=== PATIENT | female | born 1980 | race American Indian/Alaskan Native ===

== ENCOUNTER 2019-06-14 19:30 | Emergency (ER) | payer SELFPAY ==
--- NOTE | 2019-06-14 20:20 | Event Note ---
ED Screening Note ED Screening Note: n/v/d no fever or chills lmp 06/06 no one in home ill psh csec x 4 cyst ovary appy thyroid cyst tubes in ears t/a pmh obese dm- non adherent htn etoh rx off meds for bp and dm pcp none This initial assessment/diagnostic orders/clinical plan/treatment(s) is/are subject to change based on patients health status, clinical progression and re- assessment by fellow clinical providers in the ED. Further treatment and workup at subsequent clinical providers discretion. Patient/guardian urged not to elope from the ED as their condition may be serious if not clinically assessed and managed. Initial orders include: labs/urine
[2019-06-14 20:55] LABS: Basophils % (Auto) 0.2 % (0.0-1.8); Eosinophils % (Auto) 0.6 % (0.0-4.3); Hematocrit 41.5 % (30.3-42.9); Hemoglobin 14.1 gm/dl (10.1-14.3); Lymphocytes # (Auto) 2.2 K/mm3 (1.2-5.4); Mean Corpuscular HGB Conc 34 % (30-34); Mean Corpuscular Volume 85 fl (79-97); Monocytes # (Auto) 0.7 K/mm3 (0.0-0.8); Monocytes % (Auto) 8.2 % (0.0-7.3); Platelet Count 257 K/mm3 (140-440); Red Blood Count 4.91 M/mm3 (3.65-5.03); Red Cell Distribution Width 18.1 % (13.2-15.2)
[2019-06-14 21:17] LABS: Alanine Aminotransferase 23 units/L (7-56); Albumin 4.2 g/dL (3.9-5); BUN/Creatinine Ratio 5; Blood Urea Nitrogen 4 mg/dL (7-17); Calcium 9.5 mg/dL (8.4-10.2); Hemolysis Index 16
[2019-06-14 21:50] LABS: HCG Qualitative,Urine Negative (Negative)
[2019-06-14 21:55] LABS: Bilirubin,Urine NEG (Negative); Blood,Urine NEG (Negative); Color,Urine Amber (Yellow); Mucus,Urine 2+ /HPF
[2019-06-14] MEDS ORDERED: SODIUM CHLORIDE 0.9% 1000 ML 1,000 ML IV ONE (23:39)
[2019-06-14] MEDS ORDERED: FAMOTIDINE 20 MG/2 ML INJ IV ONE (23:40)
[2019-06-14] MEDS ORDERED: ONDANSETRON 4 MG/2 ML INJ IV ONE (23:40)
[2019-06-14] MEDS ORDERED: KETOROLAC 30 MG/1 ML INJ IV ONE (23:40)
--- NOTE | 2019-06-15 00:08 | Emergency Department Report ---
ED N/V/D HPI - General Chief complaint: Abdominal Pain Stated complaint: VOMITING DIARRHEA STOMACH CRAMPING Time Seen by Provider: 06/14/19 20:17 Source: patient Mode of arrival: Ambulatory Limitations: No Limitations - History of Present Illness Initial comments: 39-year-old has a past medical history of -induced diabetes, symptoms hypertension, sickle cell trait, 4, a previous appendectomy presents complaining of abdominal pain, nausea, vomiting, and diarrhea for the past 2 days. Patient had intermittent mid abdominal cramps that are worse after by mouth intake and prior to having to vomit or have a bowel movement.. Patient denies fever. Unable to tolerate any by mouth intake without vomiting. She states that her blood pressure was elevated with an ER visit last month but she has not followed up with a primary care doctor for reassessment of blood pressure or treatment. - Related Data Home Medications Medication Instructions Recorded Confirmed Last Taken glyBURIDE [Glyburide] 1.25 mg PO DAILY 03/16/16 03/24/16 Unknown Previous Rx's Medication Instructions Recorded Last Taken Type Ibuprofen [Motrin 600 MG tab] 600 mg PO Q8H PRN #30 tablet 03/16/16 Unknown Rx Multivitamin with Iron 1 each PO DAILY #30 tablet 03/16/16 Unknown Rx [Multivitamins with Iron] oxyCODONE /ACETAMINOPHEN [Percocet 1 tab PO Q6HR PRN #30 tablet 03/16/16 Unknown Rx 5/325] NIFEdipine XL [Procardia Xl] 30 mg PO QDAY #30 tablet 03/24/16 Unknown Rx labetaloL [Labetalol 100mg TAB] 300 mg PO BID #120 tablet 03/24/16 Unknown Rx Famotidine [Pepcid] 20 mg PO BID #20 tablet 06/15/19 Unknown Rx Ondansetron [Zofran Odt] 4 mg PO Q8HR PRN #20 tab.rapdis 06/15/19 Unknown Rx traMADoL [Ultram 50 MG tab] 50 mg PO Q6HR PRN #20 tablet 06/15/19 Unknown Rx Allergies Allergy/AdvReac Type Severity Reaction Status Date / Time No Known Allergies Allergy Verified 12/22/14 11:46 ED Review of Systems ROS: Stated complaint: VOMITING DIARRHEA STOMACH CRAMPING Other details as noted in HPI Comment: All other systems reviewed and negative ED Past Medical Hx - Past Medical History Previous Medical History?: Yes Hx Hypertension: Yes (pih) Hx Congestive Heart Failure: No Hx Diabetes: Yes (with ) Hx Deep Vein Thrombosis: No Hx Renal Disease: No Hx Sickle Cell Disease: Yes (trait) Hx Seizures: No Hx Asthma: No Hx COPD: No Hx HIV: No - Surgical History Hx Appendectomy: Yes Hx Breast Surgery: No Additional Surgical History: x 4. ear tubes - Social History Smoking Status: Never Smoker Substance Use Type: Alcohol - Medications Home Medications: Home Medications Medication Instructions Recorded Confirmed Last Taken Type Ibuprofen [Motrin 600 MG tab] 600 mg PO Q8H PRN #30 tablet 03/16/16 03/24/16 Unknown Rx Multivitamin with Iron 1 each PO DAILY #30 tablet 03/16/16 03/24/16 Unknown Rx [Multivitamins with Iron] glyBURIDE [Glyburide] 1.25 mg PO DAILY 03/16/16 03/24/16 Unknown History oxyCODONE /ACETAMINOPHEN [Percocet 1 tab PO Q6HR PRN #30 tablet 03/16/16 03/24/16 Unknown Rx 5/325] NIFEdipine XL [Procardia Xl] 30 mg PO QDAY #30 tablet 03/24/16 Unknown Rx labetaloL [Labetalol 100mg TAB] 300 mg PO BID #120 tablet 03/24/16 Unknown Rx Famotidine [Pepcid] 20 mg PO BID #20 tablet 06/15/19 Unknown Rx Ondansetron [Zofran Odt] 4 mg PO Q8HR PRN #20 tab.rapdis 06/15/19 Unknown Rx traMADoL [Ultram 50 MG tab] 50 mg PO Q6HR PRN #20 tablet 06/15/19 Unknown Rx ED Physical Exam - General Limitations: No Limitations - Other Other exam information: General: No limitations, patient is alert in no acute distress Head exam: Atraumatic, normocephalic Eyes exam: Normal appearance,nonicteric sclera ENT: Dry mucous membranes Neck exam: Normal inspection, full range of motion, no meningismus nontender Respiratory exam: Clear to auscultation bilateral, no wheezes, rales, crackles Cardiovascular: Normal rate and rhythm, normal heart sounds Abdomen: Soft, nondistended, mid abdominal tenderness, with normal bowel sounds, no rebound, or guarding Extremity: Full range of motion normal inspection no deformity Back: Normal Inspection, full range of motion, no tenderness Neurologic: Alert, oriented x3, cranial nerves intact, no motor or sensory deficit Psychiatric: normal affect, normal mood Skin: Warm, dry, intact ED Course Vital Signs 06/14/19 06/15/19 19:37 02:26 Temperature 99.0 F 98.5 F Pulse Rate 105 H 77 Respiratory 18 18 Rate Blood Pressure 149/100 Blood Pressure 149/88 [Right] O2 Sat by Pulse 99 100 Oximetry ED Medical Decision Making - Lab Data Result diagrams: 06/14/19 20:36 06/14/19 20:36 Lab Results 06/14/19 06/14/19 06/14/19 Range/Units 20:36 20:36 21:21 WBC 8.2 (4.5-11.0) K/mm3 RBC 4.91 (3.65-5.03) M/mm3 Hgb 14.1 (10.1-14.3) gm/dl Hct 41.5 (30.3-42.9) % MCV 85 (79-97) fl MCH 29 (28-32) pg MCHC 34 (30-34) % RDW 18.1 H (13.2-15.2) % Plt Count 257 (140-440) K/mm3 Lymph % (Auto) 27.0 (13.4-35.0) % [place] % (Auto) 8.2 H (0.0-7.3) % Eos % (Auto) 0.6 (0.0-4.3) % Baso % (Auto) 0.2 (0.0-1.8) % Lymph # 2.2 (1.2-5.4) K/mm3 [place] # 0.7 (0.0-0.8) K/mm3 Eos # 0.0 (0.0-0.4) K/mm3 Baso # 0.0 (0.0-0.1) K/mm3 Seg Neutrophils % 64.0 (40.0-70.0) % Seg Neutrophils # 5.3 (1.8-7.7) K/mm3 Sodium 139 (137-145) mmol/L Potassium 3.3 L (3.6-5.0) mmol/L Chloride 99.0 (98-107) mmol/L Carbon Dioxide 25 (22-30) mmol/L Anion Gap 18 mmol/L BUN 4 L (7-17) mg/dL Creatinine 0.8 (0.7-1.2) mg/dL Estimated GFR > 60 ml/min BUN/Creatinine Ratio 5 % Glucose 111 H (65-100) mg/dL Calcium 9.5 (8.4-10.2) mg/dL Total Bilirubin 0.60 (0.1-1.2) mg/dL AST 30 (5-40) units/L ALT 23 (7-56) units/L Alkaline Phosphatase 107 (35-129) units/L Total Protein 8.0 (6.3-8.2) g/dL Albumin 4.2 (3.9-5) g/dL Albumin/Globulin Ratio 1.1 % Lipase 20 (13-60) units/L Urine Color Brenda (Yellow) Urine Turbidity Slightly-cloudy (Clear) Urine pH 6.0 (5.0-7.0) Ur Specific [place] 1.021 (1.003-1.030) Urine Protein 100 mg/dl (Negative) mg/dL Urine Glucose (UA) Neg (Negative) mg/dL Urine Ketones Tr (Negative) mg/dL Urine Blood Neg (Negative) Urine Nitrite Neg (Negative) Ur Reducing Substances Not Reportable Urine Bilirubin Neg (Negative) Urine Ictotest Not Reportable Urine Urobilinogen 2.0 (<2.0) mg/dL Ur Leukocyte Esterase Neg (Negative) Urine WBC (Auto) 16.0 H (0.0-6.0) /HPF Urine RBC (Auto) 5.0 (0.0-6.0) /HPF U Epithel Cells (Auto) 20.0 H (0-13.0) /HPF Urine Mucus 2+ /HPF Urine HCG, Qual Negative (Negative) - Radiology Data Radiology results: report reviewed ABDOMEN 2 VIEW(S) with PA chest radiograph INDICATION / CLINICAL INFORMATION: Generalized abdominal pain, nausea and vomiting. COMPARISON: None. FINDINGS: TUBES / LINES: None. BOWEL GAS PATTERN: The bowel gas pattern is nonobstructive. ADDITIONAL FINDINGS: Surgical clips are noted within the pelvis. The accompanying chest radiograph demonstrates no evidence of acute cardiopulmonary process. IMPRESSION: 1. No radiographic evidence of acute intra-abdominal process. - Medical Decision Making hr improved with ivf pt feeling better after zofran, toradol, pepcid, 1 L ns and po kcl tolerating po intake ua likley contaminated given elevated wbc and epi cells no leuk, bact, or nitrates in urine therefore will not be treated for uti sx treatment for AGE will be provided - Differential Diagnosis gastroenteritis, colitis, obstruction, viral syndrome Critical Care Time: No Critical care attestation.: If time is entered above; I have spent that time in minutes in the direct care of this critically ill patient, excluding procedure time. ED Disposition Clinical Impression: Acute gastroenteritis, Elevated blood pressure reading Disposition: TO HOME OR SELFCARE Is pt being admited?: No Does the pt Need Aspirin: No Condition: Stable Instructions: Gastroenteritis (ED), How to Take a Blood Pressure (ED) Additional Instructions: Take the medication as prescribed. Follow up with you doctor or with the doctor provided. Return if symptoms worsen as indicated by your discharge instructions. Prescriptions: Famotidine [Pepcid] 20 mg PO BID #20 tablet traMADoL [Ultram 50 MG tab] 50 mg PO Q6HR PRN #20 tablet PRN Reason: Pain Ondansetron [Zofran Odt] 4 mg PO Q8HR PRN #20 tab.rapdis PRN Reason: Nausea And Vomiting Referrals: PRIMARY CARE, [Primary Care Provider] - 3-5 Days JANETH RHODES MD [Staff Physician] - 3-5 Days YU WHITING DO [Staff Physician] - 3-5 Days Time of Disposition: 03:02
--- NOTE | 2019-06-15 00:11 | XRay Report ---
ABDOMEN 2 VIEW(S) with PA chest radiograph INDICATION / CLINICAL INFORMATION: Generalized abdominal pain, nausea and vomiting. COMPARISON: None. FINDINGS: TUBES / LINES: None. BOWEL GAS PATTERN: The bowel gas pattern is nonobstructive. ADDITIONAL FINDINGS: Surgical clips are noted within the pelvis. The accompanying chest radiograph demonstrates no evidence of acute cardiopulmonary process. IMPRESSION: 1. No radiographic evidence of acute intra-abdominal process. Signer Name: Hope Guzmán MD Signed: 06/15/2019 12:06 AM Workstation Name: [email or web address]
[2019-06-15 02:27] VITALS: BP 149/88
[2019-06-15] MEDS ORDERED: POTASSIUM CHLORIDE ER 20 MEQ TAB PO ONE (02:47)
== END 2019-06-15 03:55 | disposition home or self-care (01) ==
LOC: ED 19:30
DX: K52.9 Noninfective gastroenteritis and colitis, unspecified (principal); I10 Essential (primary) hypertension; E11.9 Type 2 diabetes mellitus without complications; F10.10 Alcohol abuse, uncomplicated; Z90.49 Acquired absence of other specified parts of digestive tract; Z79.899 Other long term (current) drug therapy
CPT/HCPCS: 36415; 74022; 80053; 81001; 81025; 83690; 85025; 87086; 96361; 96374; 96375; 99284; J1885; J2405; J7030